=== PATIENT | male | born 1990 | race Two or more races ===

== ENCOUNTER 2016-09-05 08:58 | Inpatient (IN) | payer BC ==
[2016-09-05 09:07] VITALS: BMI 30.7
--- NOTE | 2016-09-05 09:51 | DR.GENAD ---
HPI - PCP Primary Care Physician: NFD - Complaint/Symptoms Chief Complaint Doctors Comments: Patient states he has been having fever and chills yesterday with his left arm feeling cold after feeding his baby last night like his arm fell asleep with episode of shaking last night and his took his temp with it being 93 initially and few minutes later it was back to normal at 98 then later his checked his temp with it being 100.9 and he took two Alieves x2 last night and he went to sleep but when he woke up he felt drained but denies cold, cough, nausea or vomiting. He denies sore throat or a rash. States he has not been biten by any ticks and he does not have any pets. He has been having frontal headaches and still has a dull headache this morning with the pain being 1-2 of 10. He denies dysuria, hematuria. States his appetite has been good and his shots are up to date. Chief Complaint:: PATIENT STATED THAT SHE FEELS SICK/FEVER. PATIENT STATED THAT IT STARTED LAST NIGHT. ARM FELT FATIGUED AND COLD CHILLS YESTERDAY. - Nurses notes reviewed Nurses Notes Review: Yes - Source History Provided: Patient - Mode of Arrival Mode of Arrival: Ambulatory - Timing Onset of Chief Complaint: 09/04/16 Came on: Gradually - Duration Duration: Intermittent How lon Duration: Days - Location Location: frontal headache - Severity Severity: Mild - Modifying Factors Worsens:: nothing Improves:: nothing PMH - PMH Past Medical History: No Past Surgical History: No Surgical History: No History - Family History History of Family Medical Conditions: Yes Family Medical History: Diabetes Mellitus - Social History Does patient currently use any type of tobacco product: No Have you used tobacco products in the last 12 months: No Type of Tobacco Use: None Does any household member use tobacco: No Alcohol Use: None Do you use any recreational Drugs:: No Lives With: Family Lives Where: Home - infectious screening In the last 2 months have you had wt loss of >10#?: NO Have you had fever, night sweats or hemotysis?: No Have you traveled outside the country in the last 6 months?: No Isolation: Standard ROS - Review of Systems Constitutional: No Symptoms Reported, Chills, Fever, Weakness, Fatigue. negative: See HPI, Diaphoresis, Malaise, Irritable, Loss of Appetite, Other Eyes: No Symptoms Reported ENTM: No Symptoms Reported, Nose Congestion. negative: See HPI, Ear Pain, Ear Discharge, Pulling on Ears, Hearing Loss, Nose Pain, Nose Discharge, Epistaxis, Mouth Pain, Mouth Swelling, Loose Teeth, Drooling, Throat Pain, Throat Swelling , Ear Foreign Body Respiratoy: No Symptoms Reported. negative: See HPI, Productive Cough, Non- Productive Cough, Moist Cough, Dry Cough, Hacking Cough, Barking Cough, Brassy Cough, Orthopnea, Short of Breath, Stridor, Wheezing, Hemoptysis, Other Cardiovascular: No Symptoms Reported Gastrointestinal/Abdominal: No Symptoms Reported. negative: See HPI, Abdominal Pain, Constipation, Diarrhea, Nausea, Vomiting, Food Intolerance, Other Genitourinary: No Symptoms Reported. negative: See HPI, Discharge, Dysuria, Frequency, Hematuria, Pain, Bleeding, Other Neurological: No Symptoms Reported, Headache, Numbness, Paresthesia, Weakness, Dizziness. negative: See HPI, Anxiety, Depressed, Emotional Problems, Pre- existing Deficit, Seizure, Tingling, Tremors, Problems Walking, Speech Problem, Other Musculoskeletal: No Symptoms Reported Integumentary: No Symptoms Reported. negative: See HPI, Change in Color, Change in Hair/Nails, Dryness, Lesions, Lumps, Rash, Itching, Wound, Bruises, Juandice, Other Hematologic/Lymphatic: No Symptoms Reported Endocrine: No Symptoms Reported. negative: See HPI, Excessive Sweating, Flushing, Intolerance to Cold, Intolerance to Heat, Increased Hunger, Increased Thirst, Increased Urine, Unexplained Weight Gain, Unexplained Weight Loss, Failure to Thrive, Decreased Appetite, Other Psychiatric: No Symptoms Reported PE - Vital Signs Vitals: Temperature 98.5 F Pulse Rate 100 Respiratory Rate 20 Blood Pressure 146/79 O2 Sat by Pulse Oximetry 97 - General Limitations: No Limitations General Appearance: Alert, In No Apparent Distress - Head Head Exam: Normal Inspection, Atraumatic, Normocephalic - Eyes Eye exam: Normal Appearance, PERRL, EOMI. negative: Scleral Icterus, Conjunctival Injection, Nystagmus, Miosis, Mydrasis, Periorbital Swelling, Periorbital Tenderness, Other - ENT ENT Exam: Normal Exam, Normal Oropharynx, Normal External Ear Exam, Mucous Membranes Moist, TM's Normal Bilaterally External Ear Exam: Normal External Inspection TM/Canal Exam: Bilateral Normal Nose Exam: Normal Nose Exam Mouth Exam: Normal Inspection. negative: Drooling, Trismus, Lip Swelling, Tongue Elevation, Tongue Swelling, Laceration, Other Throat Exam: Normal Inspection - Neck Neck Exam: Normal Inspection, Full ROM, Trachea Midline. negative: Tenderness, Meningismus, Lymphadenopathy, Thyromegaly, Other - Chest Chest Inspection: Normal Inspection, Symmetric Chest Wall Rise - Respiratory Respiratory Exam: Normal Lung Sounds Bilat Respiratory Exam: Bilateral Clear to Auscultation - Cardiovascular Cardiovascular Exam: Regular Rate, Normal Rhythm, Normal Heart Sounds - Abdominal Exam Abdominal Exam: Normal Inspection, Normal Bowel Sounds, Soft. negative: Distention, Tenderness, Guarding, Rebound, Rigidity, Dimnished Bowel Sounds, Hyperactive Bowel Sounds, Hypoactive Bowel Sounds, Organomegaly, Trauma, Incision, Ascites, Mass, Bruit, Pulsatile Mass, Hernia, Other Abdominal Tenderness: negative: RUQ, RLQ, LUQ, LLQ, Epigastrium, Suprapubic, Diffuse, Mild, Moderate, Severe, Other - Extremities Extremities Exam: Normal Inspection, Full ROM, Normal Capillary Refill. negative: Tenderness, Edema, Joint Swelling, Calf Tenderness, Other - Back Back Exam: Normal Inspection, Full ROM. negative: Tenderness, (R) CVA Tenderness, (L) CVA Tenderness, Muscle Spasm, Paraspinal Tenderness, Vertebral Tenderness, Rashes, (R) Sciatic Notch Tenderness, (L) Sciatic Notch Tendern, (R ) Straight Leg Raise, (L) Straight Leg Raise, Other - Neurologic Neurological Exam: Alert, Oriented X3, CN II-XII Intact, Normal Gait, Reflexes Normal - Psychiatric Psychiatric Exam: Normal Affect, Normal Mood. negative: Depressed, Agitated, Anxious, Flat Affect, Manic, Homicidal Ideation, Suicidal Ideation, Other - Skin Skin Exam: Warm, Dry, Intact, Normal Color. negative: Rash, Cyanosis, Diaphoresis, Erythema, Pallor, Mottled, Other Course - Consultation Called: 12:23 Call Returned: 12:24 (Dr. Burger to admit) - Education/Counseling Education/Counseling: Patient, Family Educated On: Treatment, Diagnosis, Needs for Follow Up ROR - Labs Reviewed Laboratory Results Reviewed?: Yes (all labs and x-ray results reviewed and discussed with patient) Result Diagrams: 09/05/16 09:47 09/05/16 09:47 Laboratory: WBC 13.0 X10^3/uL (3.6-10.0) H 09/05/16 09:47 RBC 5.50 X10^6/uL (4.7-6.0) 09/05/16 09:47 Hgb 16.2 g/dL (13.5-18.0) 09/05/16 09:47 Hct 45.9 % (42.0-54.0) 09/05/16 09:47 MCV 83.4 fL (80.0-100.0) 09/05/16 09:47 MCH 29.4 pg (27.0-34.0) 09/05/16 09:47 MCHC 35.2 g/dL (33.0-35.0) H 09/05/16 09:47 RDW 12.8 % (11.6-16.5) 09/05/16 09:47 Plt Count 105 X10^3/uL (150.0-450.0) L 09/05/16 09:47 Plt Count Comment Adequate (ADEQUATE) 09/05/16 09:47 MPV 11.0 fL (7.4-11.0) 09/05/16 09:47 Neut % 96.5 % (42.0-75.0) H 09/05/16 09:47 Lymph % 1.5 % (21.0-51.0) L 09/05/16 09:47 Davison % 1.7 % (0.0-13.0) 09/05/16 09:47 Eos % 0.1 % (0.9-2.9) L 09/05/16 09:47 Baso % 0.2 % (0.2-1.0) 09/05/16 09:47 Neut # 12.6 x10^3/uL (2.2-4.8) H 09/05/16 09:47 Lymph # 0.2 X10^3/uL (1.3-2.9) L 09/05/16 09:47 Davison # 0.2 x10^3/uL (0.3-0.8) L 09/05/16 09:47 Eos # 0.0 x10^3/uL (0.0-0.2) 09/05/16 09:47 Baso # 0.0 X10^3/uL (0.0-0.1) 09/05/16 09:47 Absolute Nucleated RBC 0.1 /100WBC 09/05/16 09:47 Total Counted 100 09/05/16 09:47 Neutrophils % (Manual) 81 % (39-76) H 09/05/16 09:47 Band Neutrophils % 18 % (0-10) H 09/05/16 09:47 Lymphocytes % (Manual) 1 % (13-43) L 09/05/16 09:47 Plt Morphology Comment Normal (NORMAL) 09/05/16 09:47 RBC Morphology Normal (NORMAL) 09/05/16 09:47 Sodium 137 mmol/L (136-145) 09/05/16 09:47 Corrected Sodium 138 mmol/L (136-145) 09/05/16 09:47 Potassium 4.3 mmol/L (3.5-5.1) 09/05/16 09:47 Chloride 101 mmol/L (98-107) 09/05/16 09:47 Carbon Dioxide 28.4 mmol/L (21-32) 09/05/16 09:47 BUN 8 mg/dL (7-18) 09/05/16 09:47 Creatinine 0.96 mg/dL (0.70-1.30) 09/05/16 09:47 Est GFR (MDRD) Af Amer > 60 (>60) 09/05/16 09:47 Est GFR (MDRD) Non-Af > 60 (>60) 09/05/16 09:47 Glucose 122 mg/dL (65-99) H 09/05/16 09:47 Lactic Acid 1.8 mmol/L (0.4-2.0) 09/05/16 09:59 Calcium 8.4 mg/dL (8.5-10.1) L 09/05/16 09:47 Corrected Calcium TNP 09/05/16 09:47 Total Bilirubin 1.60 mg/dL (0.2-1.0) H 09/05/16 09:47 AST 42 Units/L (15-37) H 09/05/16 09:47 ALT 131 Units/L (12-78) H 09/05/16 09:47 Alkaline Phosphatase 79 Units/L (46-116) 09/05/16 09:47 Total Protein 7.9 g/dL (6.4-8.2) 09/05/16 09:47 Albumin 4.4 g/dL (3.4-5.0) 09/05/16 09:47 Globulin 3.5 g/dL (2.5-4.5) 09/05/16 09:47 Albumin/Globulin Ratio 1.3 Ratio (1.1-2.1) 09/05/16 09:47 Amylase 36 Units/L (25-115) 09/05/16 09:47 Lipase 93 Units/L (73-393) 09/05/16 09:47 Specimen Type Clean catch urine 09/05/16 09:59 Urine Color Yellow (YELLOW) 09/05/16 09:59 Urine Appearance Hazy (CLEAR) 09/05/16 09:59 Urine pH 5.0 (5.0 - 8.0) 09/05/16 09:59 Ur Specific Reading 1.025 (1.000-1.030) 09/05/16 09:59 Urine Protein 2+ (NEGATIVE) 09/05/16 09:59 Urine Glucose (UA) 2+ (NEGATIVE) 09/05/16 09:59 Urine Ketones Negative (NEGATIVE) 09/05/16 09:59 Urine Occult Blood 1+ (NEGATIVE) 09/05/16 09:59 Urine Nitrite Negative (NEGATIVE) 09/05/16 09:59 Urine Bilirubin 1+ (NEGATIVE) 09/05/16 09:59 Urine Urobilinogen 1+ (NORMAL) 09/05/16 09:59 Ur Leukocyte Esterase 1+ (NEGATIVE) 09/05/16 09:59 Urine RBC 0-2 /HPF (NEGATIVE) 09/05/16 09:59 Urine WBC 0-2 /HPF (NEGATIVE) 09/05/16 09:59 Ur Squamous Epith Cells Negative /HPF (NEGATIVE) 09/05/16 09:59 Urine Bacteria Trace /HPF (NEGATIVE) 09/05/16 09:59 Urine Mucus Few /HPF (NEGATIVE) 09/05/16 09:59 Ur Culture Indicated? No/not indicated 09/05/16 09:59 Urine Opiates Screen Negative (NEG=<300) 09/05/16 09:59 Urine Methadone Screen Negative (NEG=<300) 09/05/16 09:59 Ur Barbiturates Screen Negative (NEG=<200) 09/05/16 09:59 Ur Phencyclidine Scrn Negative (NEG=<25) 09/05/16 09:59 Ur Amphetamines Screen Negative (NEG=<1000) 09/05/16 09:59 U Benzodiazepines Scrn Negative (NEG=<200) 09/05/16 09:59 Urine Cocaine Screen Negative (NEG=<300) 09/05/16 09:59 U Marijuana (THC) Screen Negative (NEG=<50) 09/05/16 09:59 Monoscreen Negative (NEGATIVE) 09/05/16 09:47 Streptococcus Screen Negative (NEGATIVE) 09/05/16 09:49 - Other Results Comments: CT headd: No acuate intracranial process can be identified. CT abdomen: Acute uncomplicated diverticulitis of the ascending colon near the hepatic flexure. Mild diffuse fatty infiltration of the liver. Bilateral L5 pars defects with grade 1 anterolisthesis of L5 on S1 - XRAY XRAY Interpreted by: Radiologist (CT abdomend: no acute intracranial process can be identified) - Diagnosis Discharge Problem: Acute diverticulitis, Hyperglycemia, Essential hypertension Abdominal pain Qualifiers: Abdominal location: right upper quadrant Qualified Code(s): R10.11 - Right upper quadrant pain - Discharge Plan Disposition: ADMITTED INPATIENT Condition: Stable - Follow ups/Referrals Follow ups/Referrals: NFD,None [Primary Care Provider] - 3 days - Instructions
[2016-09-05 10:02] LABS: BASOPHILS % (AUTO) 0.2 % (0.2-1.0); EOSINOPHILS % (AUTO) 0.1 % (0.9-2.9); HEMATOCRIT 45.9 % (42.0-54.0); HEMOGLOBIN 16.2 g/dL (13.5-18.0); LYMPHOCYTES # (AUTO) 0.2 X10^3/uL (1.3-2.9); LYMPHOCYTES % (AUTO) 1.5 % (21.0-51.0); MEAN CORPUSCULAR HEMOGLOBIN 29.4 pg (27.0-34.0); MEAN CORPUSCULAR HGB CONC 35.2 g/dL (33.0-35.0); MEAN CORPUSCULAR VOLUME 83.4 fL (80.0-100.0); MONOCYTES # (AUTO) 0.2 x10^3/uL (0.3-0.8); MONOCYTES % (AUTO) 1.7 % (0.0-13.0); NEUTROPHILS # (AUTO) 12.6 x10^3/uL (2.2-4.8); NEUTROPHILS % (AUTO) 96.5 % (42.0-75.0); PLATELET COUNT 105 X10^3/uL (150.0-450.0); RED CELL DISTRIBUTION WIDTH 12.8 % (11.6-16.5)
[2016-09-05 10:10] LABS: BILIRUBIN,URINE 1+ (NEGATIVE); BLOOD/HEMOGLOBIN,URINE 1+ (NEGATIVE); GLUCOSE, URINE 2+ (NEGATIVE); KETONES,URINE NEGATIVE (NEGATIVE); LEUKOCYTE ESTERASE ,URINE 1+ (NEGATIVE); NITRITES,URINE NEGATIVE (NEGATIVE); PROTEIN,URINE 2+ (NEGATIVE); UROBILINOGEN,URINE 1+ (NORMAL)
[2016-09-05 10:10] LABS: ALANINE AMINOTRANSFERASE 131 Units/L (12-78); ALBUMIN 4.4 g/dL (3.4-5.0); ALKALINE PHOSPHATASE 79 Units/L (46-116); AMYLASE 36 Units/L (25-115); ASPARTATE AMINO TRANSFERASE 42 Units/L (15-37); BLOOD UREA NITROGEN 8 mg/dL (7-18); CALCIUM 8.4 mg/dL (8.5-10.1); CARBON DIOXIDE 28.4 mmol/L (21-32); CHLORIDE 101 mmol/L (98-107); COR NA(FOR HYPERGLY) 138 mmol/L (136-145); CREATININE 0.96 mg/dL (0.70-1.30); GLUCOSE 122 mg/dL (65-99); LIPASE 93 Units/L (73-393); SODIUM 137 mmol/L (136-145); TOTAL PROTEIN 7.9 g/dL (6.4-8.2); eGFR BLACK RACES > 60 (>60); eGFR NON BLACK RACES > 60 (>60)
[2016-09-05 10:12] LABS: MONOTEST NEGATIVE (NEGATIVE)
--- NOTE | 2016-09-05 10:20 | CT ---
HISTORY: Headache. Study: CT brain without contrast.Dose reduction techniques including Automated Exposure Control (AE C) and adjustment of mA and kV were utilized. Comparison: None. Technique: Multiple axial images of the brain were obtained from the skull base to the vertex without administr ation of IV contrast. Findings: No acute intraparenchymal hemorrhage or mass can be identified. No extra-axial fluid collections ar e seen. No alteration in the attenuation of the brain parenchyma can be identified to suggest acute or subacute ischemic change. The ventricular system is symmetric and nondilated. The extracranial structures are grossly unremarkable. IMPRESSION: No acute intracranial process can be identified. Reported By:
[2016-09-05 10:27] LABS: BAND NEUTROPHILS % 18 % (0-10); PLATELET MORPHOLOGY COMMENT NORMAL (NORMAL)
[2016-09-05 10:32] LABS: APPEARANCE,URINE HAZY (CLEAR); BACTERIA,URINE TRACE /HPF (NEGATIVE); COLOR,URINE YELLOW (YELLOW); RBC,URINE 0-2 /HPF (NEGATIVE); SQUAMOUS EPITHELIAL CELL,UR NEGATIVE /HPF (NEGATIVE)
[2016-09-05 10:33] LABS: MUCUS,URINE FEW /HPF (NEGATIVE)
--- NOTE | 2016-09-05 11:08 | CT ---
HISTORY: Abnormal liver enzymes. Study: CT abdomen and pelvis without contrast. Dose reduction techniques including Automated Exposur e Control (AEC) and adjustment of mA and kV were utilized. Comparison: None. Technique: Multiple axial images of the abdomen and pelvis were obtained from the lung bases to the pubic symphysis without the administration of IV contrast. Findings: The included portions of the lung bases are clear. There is mild diffuse hypoattenuation o f the liver which can be seen in the setting of fatty infiltration. No intrahepatic biliary ductal d ilatation or mass lesion is evident given the lack of intravenous contrast. The gallbladder, pancrea s, spleen, adrenal glands and kidneys are unremarkable in their noncontrast CT appearance. There are scattered diverticula of the colon with associated pericolonic stranding within the ascending colon just proximal to the hepatic flexure compatible with acute diverticulitis. There is no extraluminal air or organized fluid collection to suggest abscess. The appendix is normal. There is no small bow el dilatation. There is no intraperitoneal free air or free fluid. The urinary bladder is partially distended but otherwise grossly unremarkable. The abdominal aorta is nonaneurysmal. There are bilate ral L5 pars defects with grade 2 anterolisthesis of L5 on S1 measuring 10 mm. There is associated de generative disc disease and narrowing at L5-S1. IMPRESSION: 1. Acute uncomplicated diverticulitis of the ascending colon near the hepatic flexure. 2. Findings suggesting mild diffuse fatty infiltration of the liver. 3. Bilateral L5 pars defects with grade 2 anterolisthesis of L5 on S1. There is associated degenerat colleen disc disease at this level. Reported By:
[2016-09-05] MEDS ORDERED: ROCEPHIN VIAL 1 GM IM ONE (12:06)
[2016-09-05] MEDS ORDERED: CIPRO IV 400 MG PREMIX* 400 MG/200 ML IV.SOLN. IV ONE ×2 (12:13→12:26)
[2016-09-05] MEDS ORDERED: MORPHINE SULFATE INJ 2 MG IVP PRN (12:28)
[2016-09-05] MEDS ORDERED: PEPCID 20 MG IV PREMIX* 20 MG/50 ML BAG IV PRN (12:28)
[2016-09-05] MEDS ORDERED: ZOFRAN INJ 4 MG VIAL IVP PRN (12:28)
[2016-09-05] MEDS: D5 1/2 NS + KCL 20 MEQ/L 1,000 ML IV SCH ×2 (12:58→21:49)
[2016-09-05] MEDS: FLAGYL IV PREMIX 500 MG BAG 500 MG/100 ML BAG IV SCH ×4 (14:29→21:50)
--- NOTE | 2016-09-05 17:23 | RAD ---
Chest, two views Indication: Fever, fatigue, chills Comparison: None Findings: The heart size is normal. The lungs are clear, focal infiltrates, pleural effusion, or pne umothorax. The bony thorax is unremarkable. Impression: No acute cardiopulmonary disease. Reported By:
[2016-09-05] MEDS: CIPRO IV 400 MG PREMIX* 400 MG/200 ML IV.SOLN. IV SCH (21:50)
[2016-09-06] MEDS: FLAGYL IV PREMIX 500 MG BAG 500 MG/100 ML BAG IV SCH ×3 (05:30→15:30)
[2016-09-06] MEDS: D5 1/2 NS + KCL 20 MEQ/L 1,000 ML IV SCH ×2 (05:31→14:46)
[2016-09-06 06:41] LABS: ALANINE AMINOTRANSFERASE 119 Units/L (12-78); ALBUMIN 3.4 g/dL (3.4-5.0); ALKALINE PHOSPHATASE 60 Units/L (46-116); ASPARTATE AMINO TRANSFERASE 56 Units/L (15-37); BLOOD UREA NITROGEN 9 mg/dL (7-18); CALCIUM 8.1 mg/dL (8.5-10.1); CARBON DIOXIDE 24.7 mmol/L (21-32); CHLORIDE 102 mmol/L (98-107); COR NA(FOR HYPERGLY) 137 mmol/L (136-145); CREATININE 0.99 mg/dL (0.70-1.30); GLUCOSE 166 mg/dL (65-99); SODIUM 135 mmol/L (136-145); TOTAL PROTEIN 7.1 g/dL (6.4-8.2); eGFR BLACK RACES > 60 (>60); eGFR NON BLACK RACES > 60 (>60)
[2016-09-06 07:14] LABS: BASOPHILS % (AUTO) 0.7 % (0.2-1.0); EOSINOPHILS % (AUTO) 0.4 % (0.9-2.9); HEMATOCRIT 40.7 % (42.0-54.0); HEMOGLOBIN 14.6 g/dL (13.5-18.0); LYMPHOCYTES # (AUTO) 0.7 X10^3/uL (1.3-2.9); MEAN CORPUSCULAR HEMOGLOBIN 29.8 pg (27.0-34.0); MEAN CORPUSCULAR HGB CONC 35.8 g/dL (33.0-35.0); MEAN CORPUSCULAR VOLUME 83.2 fL (80.0-100.0); MEAN PLATELET VOLUME 11.4 fL (7.4-11.0); MONOCYTES # (AUTO) 0.4 x10^3/uL (0.3-0.8); MONOCYTES % (AUTO) 5.9 % (0.0-13.0); NEUTROPHILS # (AUTO) 5.5 x10^3/uL (2.2-4.8); PLATELET COUNT 85 X10^3/uL (150.0-450.0); RED BLOOD COUNT 4.89 X10^6/uL (4.7-6.0); RED CELL DISTRIBUTION WIDTH 13.2 % (11.6-16.5); WHITE BLOOD COUNT 6.6 X10^3/uL (3.6-10.0)
[2016-09-06] MEDS: CIPRO IV 400 MG PREMIX* 400 MG/200 ML IV.SOLN. IV SCH (08:06)
[2016-09-06 12:50] VITALS: BP 98/58
--- NOTE | 2016-09-14 22:49 | DR.CARTERS ---
Short Stay Summary - Short Stay Summary for: Short Stay Summary for Date of:: 09/05/16 - Admission Date Date of Admission: 09/05/16 - Discharge Date Discharge Date: 09/06/16 - Admission Diagnoses (1) UTI (urinary tract infection) Status: Acute (2) Abdominal pain Status: Acute (3) Acute diverticulitis Status: Acute (4) Essential hypertension Status: Acute - Hospital Course Hospital Course: Patient states he has been having fever and chills yesterday with his left arm feeling cold after feeding his baby last night like his arm fell asleep with episode of shaking last night and his took his temp with it being 93 initially and few minutes later it was back to normal at 98 then later his checked his temp with it being 100.9 and he took two Alieve x2 last night and he went to sleep but when he woke up he felt drained but denies cold, cough, nausea or vomiting. He denies sore throat or a rash. States he has not been bitten by any ticks and he does not have any pets. He has been having frontal headaches and still has a dull headache this morning with the pain being 1-2 of 10. He denies dysuria, hematuria. States his appetite has been good and his shots are up to date. Patient was noted on CT to have acute diverticulitis. WBC did improve within 24 hours. patient was felt stable and was dc him to be followed in op setting. - Discharge Medications Discharge Medications: NK [NK] 09/05/16 [History] - Discharge Plan Disposition: HOME, SELF-CARE Condition: Stable - Follow up/Referrals Follow up/Referrals: NFD,None [Primary Care Provider] - 3 days - Instructions Instructions: Diverticulitis, [id number], Low-Fiber Diet Additional Instructions: 1-TAKE CIPRO 500MG BY MOUTH TWICE A DAY FOR 10 DAYS 2- TAKE FLAGYL 500MG THREE TIMES A DAY FOR 10 DAYS 3- FOLLOW-UP APPOINTMENT September @ 11:00AM @ DR PAEZ'S OFFICE IN [facility] 4- FOLLOW DIET INSTRUCTIONS GIVEN
== END 2016-09-06 16:00 | disposition home or self-care (01) | DRG 690 ==
LOC: ER 09:10 → MED/SURG 12:25
PROVIDERS: ADMIT Internal Medicine; ATTEND Internal Medicine
DX: N39.0 Urinary tract infection, site not specified (principal); K57.92 Diverticulitis of intestine, part unspecified, without perforation or abscess without bleeding; E11.65 Type 2 diabetes mellitus with hyperglycemia; I10 Essential (primary) hypertension; R10.11 Right upper quadrant pain; R10.84 Generalized abdominal pain
CPT/HCPCS: 36415; 70450; 71020; 74176; 80053; 80307; 81001; 82150; 83605; 83690; 85025; 86308; 87070; 87880; 96365; 96374; 99221; 99284; A4216; A4222; S0030; G0434; J0744

== ENCOUNTER → 2016-09-21 | Outpatient (CLI) | payer BC ==
[2016-09-06 12:50] VITALS: BP 98/58
[~2016-09-21] MED LIST: NS 250 ML IV 250 ML IV ONE
--- NOTE | 2016-09-21 11:02 | CT ---
CT abdomen and pelvis with contrast Indication: Abdominal pain, diverticulitis follow up Technique: Helical CT images of the abdomen and pelvis were obtained with contrast. Reformatted imag es in coronal and sagittal planes were also generated for review. Comparison: September 05, 2016 Findings: Visualized lung bases appear clear. Bilateral L5 pars defects with associated grade 2 anterolisthesi s of L5 on S1 is again noted. No focal aggressive osseous lesions are seen. The liver, gallbladder, biliary tree, spleen (accessory splenule), pancreas, adrenals and kidneys ar e unremarkable. Diverticulosis of the ascending colon is again seen with minimal persistent but significantly improv ed pericolonic stranding about the hepatic flexure. No adjacent abscess or findings of perforation a re seen. Remaining GI tract appears normal. The IVC, abdominal aorta, urinary bladder and prostate appear normal. There is no free air, free flu id or lymphadenopathy. Impression: Persistent but resolving acute diverticulitis of the ascending colon near the hepatic flexure withou t associated abscess, perforation or additional complication identified. Reported By:
== END | disposition home or self-care (01) | DRG 392 ==
LOC: RAD 09:42
PROVIDERS: ATTEND Nurse Practitioner Family
DX: K57.92 Diverticulitis of intestine, part unspecified, without perforation or abscess without bleeding (principal); R10.84 Generalized abdominal pain
CPT/HCPCS: 74177; A4222